=== PATIENT | male | born 1955 | race Caucasian/White ===

== ENCOUNTER 2017-02-09 11:32 | Emergency (ER) | payer MEDICAID, OTHER ==
[~2017-02-09] VITALS: Ht 175.3 cm; Wt 92.0 kg
[2017-02-09 11:43] VITALS: Ht 175.3 cm; Wt 92.0 kg
[2017-02-09] MEDS ORDERED: HYD25 PO (12:37)
[2017-02-09] MEDS ORDERED: NICARDipine HCL 30 MG CAPSULE PO ONE (13:00)
[2017-02-09 13:28] VITALS: BP 169/88; PULSE 80; RESP 18; TEMP 98.3
--- NOTE | 2017-02-09 14:22 | ERD ---
ER Documentation Chief Complaint Date/Time DATE: 02/09/17 TIME: 14:20 Chief Complaint pt bib family [place] [facility] [place] for HTN HPI Patient is a 61-year-old male with hypertension who presents with high blood pressure. The patient was being seen at [facility] orthopedic [place] and was found to have high blood pressure. He was sent to the ER for further evaluation. The patient has no symptoms. He has no chest pain or shortness of breath. He denies any strokelike symptoms. Upon review of old medical records this is the patient's first visit to the emergency department. He does not currently have a primary doctor. ROS All systems reviewed and are negative except as per history of present illness. Medications Home Meds Active Scripts Hydrochlorothiazide* (Hydrochlorothiazide*) 25 Mg Tab, 25 MG PO DAILY, #30 TAB Prov:WES VASQUEZ MD 02/09/17 Allergies Allergies: Coded Allergies: No Known Allergy (Unverified , 02/09/17) PMhx/Soc Medical and Surgical Hx: pt denies Medical Hx History of Surgery: Yes (LT SHOULDER TENDON REPAIR ) Anesthesia Reaction: No Hx Neurological Disorder: No Hx Respiratory Disorders: No Hx Cardiac Disorders: No Hx Psychiatric Problems: No Hx Miscellaneous Medical Probl: No Hx Alcohol Use: Yes Hx Substance Use: No Hx Tobacco Use: No (QUIT 4 MONTHS AGO ) Smoking Status: Former smoker FmHx Family History: No diabetes Physical Exam Vitals Vital Signs Date Time Temp Pulse Resp B/P Pulse Ox O2 Delivery O2 Flow Rate FiO2 02/09/17 13:28 98.3 80 18 169/88 99 Room Air 02/09/17 12:45 80 18 198/108 99 Room Air 02/09/17 11:43 98.3 86 16 173/103 98 Physical Exam Const: No acute distress Head: Atraumatic Eyes: Normal Conjunctiva ENT: Normal External Ears, Nose and Mouth. Neck: Full range of motion..~ No meningismus. Resp: Clear to auscultation bilaterally Cardio: Regular rate and rhythm, no murmurs Abd: Soft, non tender, non distended. Normal bowel sounds Skin: No petechiae or rashes Back: No midline or flank tenderness Ext: No cyanosis, or edema Neur: Awake and alert Psych: Normal Mood and Affect Results 24 hrs Current Medications Medications (Trade) Dose Ordered Sig/Dung Route PRN Reason Start Time Stop Time Status Last Admin Dose Admin Nicardipine HCl (Cardene) 30 mg ONCE ONCE PO 02/09/17 13:00 02/09/17 13:01 DC 02/09/17 12:52 Procedures/[facility] Patient is a 61-year-old male with hypertension who presents for high blood pressure. He is asymptomatic. I will treat the patient with Cardene in the emergency department and he will be given a prescription for hydrochlorothiazide. He will need to take this daily. He was given information for the local clinics and can return for any worsening symptoms. I believe outpatient management is appropriate. I doubt true hypertensive emergency. I doubt acute coronary syndrome or stroke. Departure Diagnosis: Primary Impression: Hypertension Hypertension type: essential hypertension Qualified Code: I10 - Essential hypertension Condition: Fair Patient Instructions: High Blood Pressure (Hypertension) [facility] Usted se wheatley hecho un examen mdico de control que le indica que no est en gabby condicin que requiera tratamiento urgente en el Departamento de Emergencia. Un estudio ms profundo y el tratamiento de moreno condicin pueden esperar sin ningn riesgo hasta que usted sea atendida/o en el consultorio de moreno mdico o gabby cl jonathan. Es responsabilidad suya arreglar gabby sylwia para el seguimiento del kody. MANEJO DE CONDICIONES NO URGENTES EN EL FUTURO 1) Si usted tiene un mdico de atencin primaria: Usted debera llamar a moreno mdico de atencin primaria antes de venir al departamento de emergencia. Despus de las horas de consultorio, moreno doctor o moreno asociado/a est disponible por telfono. El mdico o enfermero de ash en el servicio telefnico puede asesorarle por yasmeen medio para atender el problema, o kody contrario se puede programar gabby sylwia. 2) Si usted no tiene un mdico de atencin primaria: Llame al mdico o clnica de referencia que aparece abajo randy las horas de consultorio para hacer gabby sylwia para que le vean. CLINICAS: [facility] [phone] [facility] [phone] [facility] [phone] [place] [phone] [place] [address] [phone] [place] [phone] Additional Instructions: Llame al doctor MAANA y olena gabby SYLWIA PARA DENTRO DE 1-2 WEST.Dgale a la secretaria que nosotros le instruimos hacer esta sylwia.Avise o llame si moreno condicin se empeora antes de la sylwia. Regresa aqui si peor o no mejor. WES VASQUEZ MD Feb 09, 2017 14:21
== END 2017-02-09 13:30 | disposition home or self-care (01) ==
LOC: E/R 11:32
DX: I10 Essential (primary) hypertension (principal); Z87.891 Personal history of nicotine dependence
CPT/HCPCS: Z7502; Z7610; 99283